=== PATIENT | female | born 2000 | race Two or more races ===

== ENCOUNTER 2021-09-29 11:44 | Emergency (ER) | payer OTHER ==
[~2021-09-29] VITALS: Ht 172.7 cm; Wt 76.7 kg
[2021-09-29 11:55] VITALS: BP 105/58
[2021-09-29 19:38] LABS: Urine Bacteria NONE SEEN /hpf (None Seen); Urine Blood 3+ /uL (Negative); Urine Mucus MODERATE (None Seen); Urine Specific Gravity 1.028 (1.001-1.035); Urine WBC 106 /hpf (0 - 5); Urine WBC Clumps PRESENT /hpf (None Seen)
== END 2021-09-29 18:48 | disposition left against medical advice (07) ==
LOC: ER 11:44
DX: O20.8 Other hemorrhage in early pregnancy (principal); Z3A.01 Less than 8 weeks gestation of pregnancy; Z53.21 Procedure and treatment not carried out due to patient leaving prior to being seen by health care provider
CPT/HCPCS: 81001